=== PATIENT | female | born 1960 | race Asian ===

== ENCOUNTER 2016-10-26 06:49 | Day surgery (SDC) | payer OTHER ==
[~2016-10-26] VITALS: Ht 167.6 cm; Wt 52.7 kg
[~2016-10-26 06:49] MED LIST: SODIUM CHLORIDE 0.9% 0 ML IV ONE; SODIUM CHLORIDE 0.9% 1,000 ML IV ONE
[2016-10-26] MEDS ORDERED: SODIUM CHLORIDE 0.9% 1,000 ML IV ONE (07:06)
[2016-10-26] MEDS ORDERED: METF850T2 PO (07:17)
[2016-10-26] MEDS ORDERED: LORA10TA7 PO (07:17)
[2016-10-26] MEDS ORDERED: OS500 PO (07:17)
[2016-10-26] MEDS ORDERED: GABA-529 PO (07:17)
[2016-10-26] MEDS ORDERED: FAMO20 PO (07:17)
[2016-10-26] MEDS ORDERED: MIDAZOLAM HCL 2 MG/2 ML VIAL ONE (07:44)
[2016-10-26] MEDS ORDERED: FentaNYL CITRATE-PF 100 MCG/2 ML VIAL ONE (07:44)
[2016-10-26] MEDS ORDERED: MethylPREDNISolone SOD SUCC 125 MG/2 ML VIAL IVP ONE (08:45)
[2016-10-26] MEDS ORDERED: MethylPREDNISolone SOD SUCC 125 MG/2 ML VIAL ONE (09:54)
[2016-10-26] MEDS ORDERED: BENZOCAINE 20% 50 MCG/SPRAY 57 GM TP ONE (17:04)
[2016-10-26] MEDS ORDERED: LIDOCAINE HCL 4% 50 ML SOLUTION TP ONE (17:04)
[2016-10-26] MEDS ORDERED: LIDOCAINE HCL 2% 30 ML JELLY TP ONE (17:04)
[2016-10-26] MEDS ORDERED: OXYGEN THERAPY IH SCH (20:00)
== END 2016-10-26 10:55 | disposition home or self-care (01) ==
LOC: SURGERY 06:49
PROVIDERS: ATTEND Internal Medicine Critical Care Medicine
DX: J38.4 Edema of larynx (principal); B37.0 Candidal stomatitis; E11.9 Type 2 diabetes mellitus without complications; E78.00 Pure hypercholesterolemia, unspecified; Z87.59 Personal history of other complications of pregnancy, childbirth and the puerperium
CPT/HCPCS: 31623; 31624; 71010; 87015 ×2; 87070; 87101; 87147; 87205; 87220; 88108; 88312; J2250; J2930; J3010; J7030